=== PATIENT | female | born 1960 ===

== ENCOUNTER → 2016-10-16 | Emergency (ER) | payer MEDICARE, MEDICAID | END | disposition disaster alternative care site (69) | LOC: GAMB 18:12 | DX: R06.9 Unspecified abnormalities of breathing (principal); Z87.898 Personal history of other specified conditions ==

== ENCOUNTER → 2016-10-16 | Emergency (ER) | payer MEDICARE, MEDICAID | END | disposition disaster alternative care site (69) | LOC: GAMB 18:12 | DX: R06.9 Unspecified abnormalities of breathing (principal); Z87.898 Personal history of other specified conditions ==